=== PATIENT | female | born 1940 | race Caucasian/White ===

== ENCOUNTER 2020-10-22 10:05 | Outpatient (CLI) | payer OTHER, SELFPAY ==
--- NOTE | ~2020-10-22 | MR_ITS ---
EXAMINATION: MR lumbar spine wo con EXAM DATE: 10/22/2020 11:07 INDICATION: Left sciatica, spinal stenosis . TECHNIQUE: Multi-sequential, multiplanar MR images of the lumbar spine were obtained without contrast . Sagittal T1, T2, T2 fat saturation images. Axial T2 weighted images. There is no prior study for comparison. FINDINGS: Bilateral fluid signal intensity renal lesions, imaged portions are consistent with cysts. There is moderate upper lumbar dextroscoliosis. Overall moderate disc disease L3-S1, mild at the uppe r lumbar levels. The conus medullaris terminates at the L1/2 level and has normal signal intensity an d morphology. There are no focal marrow signal abnormalities suspicious for malignancy or acute frac ture. There is 2-3 mm anterolisthesis L5 on S1 without spondylolysis. The vertebral bodies are otherw ise aligned. Level by level evaluation: T12-L1: There is a mild diffuse disc bulge. Facet arthropathy: Mild. Neural foraminal stenosis: No stenosis. Central canal stenosis: No stenosis. L1-L2: There is a mild diffuse disc bulge. Superimposed small central extrusion, inferior migration. Facet arthropathy: Mild. Neural foraminal stenosis: No stenosis. Central canal stenosis: No stenosis. L2-L3: There is a mild diffuse disc bulge. Facet arthropathy: Mild. Neural foraminal stenosis: No stenosis. Central canal stenosis: No stenosis. L3-L4: There is a mild to moderate diffuse disc bulge. Facet arthropathy: Mild to moderate. Neural foraminal stenosis: Mild to moderate left, mild right. Central canal stenosis: Mild. L4-L5: There is a moderate diffuse disc bulge asymmetric to the right Facet arthropathy: Mild to moderate. Neural foraminal stenosis: Moderate to severe right. Central canal stenosis: Mild to moderate, particularly right lateral recess. L5-S1: There is a mild to moderate diffuse disc bulge. Facet arthropathy: Mild to moderate. Neural foraminal stenosis: Moderate to severe right, moderate left. Central canal stenosis: Mild. IMPRESSION: 1. L4-5 and L5-S1 moderate disc disease and moderate to severe right neural foraminal stenosis. 2. Less spondylosis other levels. 3. Moderate thoracic dextroscoliosis. Reviewed, dictated and finalized at location A. [employer] IMPRESSION: 1. L4-5 and L5-S1 moderate disc disease and moderate to severe right neural fo raminal stenosis. 2. Less spondylosis other levels. 3. Moderate thoracic dextroscoliosis.
== END 2020-10-22 10:06 | disposition home or self-care (01) ==
PROVIDERS: PCP Internal Medicine; Visit Provider Orthopaedic Surgery
DX: M47.27 Other spondylosis with radiculopathy, lumbosacral region (principal); M48.07 Spinal stenosis, lumbosacral region; M41.9 Scoliosis, unspecified
CPT/HCPCS: 72148